=== PATIENT | male | born 1950 | race Caucasian/White ===

== ENCOUNTER 2017-02-12 20:43 | Emergency (ER) | payer SELFPAY ==
[~2017-02-12] VITALS: Ht 175.3 cm; Wt 106.8 kg
[2017-02-12 20:48] VITALS: BP 118/83; PULSE 101; RESP 16; O2SAT 96
== END 2017-02-12 21:59 | disposition left against medical advice (07) ==
LOC: SED 20:43
DX: S09.8XXA Other specified injuries of head, initial encounter (principal); W22.8XXA Striking against or struck by other objects, initial encounter; Y93.9 Activity, unspecified; Y92.9 Unspecified place or not applicable; Y99.8 Other external cause status; Z53.29 Procedure and treatment not carried out because of patient's decision for other reasons

== ENCOUNTER 2017-02-13 03:23 | Emergency (ER) | payer OTHER ==
[2017-02-13 03:31] VITALS: BP 157/94; PULSE 91; RESP 20; O2SAT 95
--- NOTE | 2017-02-13 06:16 | ED.REPORT ---
HPI-Trauma Multiple Date of Service Feb 13, 2017 ED Provider: Star Orellana MD Patient is a 66 year old male with a history of asthma who presents to the ED complaining of a headache secondary to a head injury that occurred at 1900 last night. He reportedly hit his head backwards onto an awning. The patient is currently endorsing a mild/dull headache. He denies any confusion, nausea, vomiting, LOC or visual disturbance. Patient is not currently on any blood thinners. Last tetanus was 2 years ago. Nursing Notes Stated Complaint: HEAD INJURY/ LACERATION Chief Complaint: Head, Face, Neck Trauma Nursing Notes Reviewed: Yes Allergies: Coded Allergies: No Known Allergies (Unverified , 02/12/17) General Time Seen by Provider: 06:19 Chief Complaint Head pain/injury Hx Obtained From: Patient Arrived By: Walk-in Onset Occurred: 9 - 12 hours ago Symptom Duration: Since onset Progression Since Onset: Unchanged Location: : Head Quality: Painful Severity: Current: Moderate Severity: Maximum: Moderate Associated with: Reports: Headache, Denies: Confusion, Loss of consciousness..., Nausea, Visual disturbance, Vomiting Pertinent Negative: Pt denies other symptoms Immunizations: Tetanus up to date Recent Healthcare: No recent doctor visit, No recent hospitalization Past Medical History Past Medical History Asthma Cellulitis Hx of necrotizing fascitis Past Surgical History None reported. Smoking History Unknown if Ever Smoker Social History Other Social History: Good social support, Local resident Ambulatory Status Independent Review of Systems GI: Denies: Nausea, Vomiting Neurologic: Reports: Headache, Denies: Change LOC, Vision change Psychiatric: Denies: Confusion Complete sys rev & neg: except as marked. Physical Exam Initial Vital Signs Vital Signs (First) Date Time Temp Pulse Resp B/P Pulse Ox O2 Delivery O2 Flow Rate FiO2 02/13/17 03:31 36.8 91 20 157/94 95 Initial VS: Reviewed Extremities: Vascular intact, Neuro intact, No swelling, No tenderness Skin: Warm, Dry, No cyanosis Psychiatric: Mood/affect normal, Behavior normal, Normal thought content General/Constitutional: Awake, Alert, No acute distress, Well appearing, Well developed Head / Eyes: Atraumatic, Normocephalic, PERRL, EOMI Trauma - General: Positive: Laceration (1.5 cm laceration about the scalp ) No FB present Laceration does not extend below the SubQ tissue. Neck: Atraumatic, Supple, Full range of motion Respiratory / Chest: Atraumatic, Breath sounds NL, Breath sounds = bilat, No respiratory distress Cardiovascular: Heart rate NL, Regular rhythm, Heart sounds NL, No gallop, No murmurs, No rubs Abdomen: Atraumatic, Soft, Non-tender, BS normoactive Back: Atraumatic, Inspection NL Neurologic: Oriented X3, Speech NL, No motor deficits, No sensory deficits Procedures Laceration Management Time: 06:37 Procedure Performed by: ED physician Consent / Setup / Site Prep: Consent from patient, Time-out performed, Hand hygiene observed, Stand sterile technique Location of Wound: Left posterior scalp Wound Length: 1 cm (1.5 cm) Local Anesthesia: Lidocaine 1% Wound Preparation: Normal saline Debridement: None Irrigation: Copious Foreign Body Explore / Removal: Explored for foreign body Repair Skin: Ayan # Sutures - Skin: 3 Post-Procedure / Complications: Antibiotic oint applied, Dressing applied, No complications, Condition improved, Tolerated procedure well, Patient stable Re-Eval/Medical Decision Med Decision/Clinical Course Patient is a 66 year old male with a history of asthma who presents to the ED complaining of a headache secondary to a head injury that occurred at 1900 last night. He reportedly hit his head backwards onto an awning. The patient is currently endorsing a mild/dull headache. He denies any confusion, nausea, vomiting, LOC or visual disturbance. Patient is not currently on any blood thinners. Last tetanus was 2 years ago. Emergency department the patient is afebrile with stable vital signs and examination as above. Laceration was repaired documented above. The laceration was copiously irrigated and explored. Galea intact. No evidence of skull fracture. No evidence of foreign body. She is not on blood thinners, did not loss of consciousness has mild headache though otherwise no signs of significant head trauma. I do not feel that neuro imaging is indicated. He is up-to-date on tetanus. He is advised to watch for any signs of infection and return in 7 days for staple removal. Prior to discharge follow-up and return precautions were reviewed in detail with the patient who verbalized understanding and agreement with the plan. The patient was discharged in stable condition. Re-Evaluation/Progress : Time of Eval: 06:33 Patient Status: Condition improved Re-Evaluation/Progress Note: Laceration is repaired. Discussed intended treatment plan. All of the pateint's questions are addressed. He understands and agrees with the treatment plan. Counseled Regarding: Diagnosis, Need for follow-up, When/why to return to ED Discharge & Departure Impression: Primary Impression: Scalp laceration Encounter type: initial encounter Qualified Code: S01.01XA - Laceration without foreign body of scalp, initial encounter Additional Impression: Head trauma Encounter type: initial encounter Qualified Code: S09.90XA - Unspecified injury of head, initial encounter Disposition: Home Discharge Condition All VS Reviewed: Yes Condition: Improved Patient Instructions: Head Injury (ED) Additional Instructions: Thank you for seeking care at emergency room. Our primary goal today in the ED was to evaluate you for any life-threatening conditions. Your evaluation was reassuring. You tolerated the repair very well. Please return to the emergency department in the next 5-7 days for staple removal. You should follow-up with your primary doctor in the next week. You should return to the ED immediately if you develop fevers, chills, vomiting , redness, swelling, pustule drainage, lightheadedness, weakness or any other concerning signs or symptoms. Thank you for seeking care at emergency room. Referrals: [facility] (PCP) [facility] Scribe Attestation Portions of this note were transcribed by Radha Richardson. I, Dr. Orellana personally performed the history, physical exam and medical decision-making; I reviewed and confirmed the accuracy of the information in the transcribed note. Signed by: Jessica Esparza, 02/13/17 [id number]. Star Orellana MD Feb 13, 2017 06:16 RADHA RICHARDSON Feb 13, 2017 06:23
== END 2017-02-13 06:52 | disposition home or self-care (01) ==
LOC: SED 03:23
DX: S01.01XA Laceration without foreign body of scalp, initial encounter (principal); S09.90XA Unspecified injury of head, initial encounter; W22.8XXA Striking against or struck by other objects, initial encounter; Y93.9 Activity, unspecified; Y92.9 Unspecified place or not applicable; Y99.9 Unspecified external cause status

== ENCOUNTER 2017-02-19 11:08 | Emergency (ER) | payer OTHER ==
[2017-02-19 11:16] VITALS: BP 144/84; PULSE 92; RESP 16; O2SAT 96
== END 2017-02-19 11:30 | disposition home or self-care (01) ==
LOC: SED 11:08
DX: Z48.02 Encounter for removal of sutures (principal)